=== PATIENT | female | born 1935 | race African-American/Black ===

== ENCOUNTER 2017-02-28 06:00 | Emergency (ER) | payer MEDICARE, OTHER ==
[2017-02-28 07:57] LABS: Basophils % (Auto) 0.9 % (0.0-1.8); Eosinophils % (Auto) 1.5 % (0.0-4.3); Hematocrit 41.1 % (30.3-42.9); Hemoglobin 13.6 gm/dl (10.1-14.3); Mean Corpuscular HGB Conc 33 % (30-34); Mean Corpuscular Hemoglobin 30 pg (28-32); Mean Corpuscular Volume 90 fl (79-97); Platelet Count 295 K/mm3 (140-440); Red Blood Count 4.55 M/mm3 (3.65-5.03); Red Cell Distribution Width 14.1 % (13.2-15.2); White Blood Count 10.3 K/mm3 (4.5-11.0)
[2017-02-28] MEDS ORDERED: MOTRIN PO ONE (07:57)
--- NOTE | 2017-02-28 08:01 | Emergency Department Report ---
ED Chest Pain HPI - General Chief Complaint: Chest Pain Stated Complaint: CHEST PAIN Time Seen by Provider: 02/28/17 07:51 Source: patient, EMS Mode of arrival: Stretcher Limitations: No Limitations - History of Present Illness Initial Comments: 81-year-old female presents to the emergency department complaining of chest pain. Patient reports the onset of sharp left-sided chest pain last night at 11 PM. Patient reports pain is only present with inspiration. Pain does not radiate. She reports mild associated shortness of breath. She denies headache , dizziness, diaphoresis, nausea, or vomiting. At this time, she reports that the sharp pain has improved, but is still present. There are no other complaints. MD Complaint: chest pain -: Sudden, Last night Time: 23:00 Onset: during rest Pain Location: left chest Pain Radiation: none Severity: severe Severity scale (0 -10): 8 Quality: sharp Consistency: constant Improves With: nothing Worsens With: inspiration re: dyspnea. denies: nausea, vomting, diaphoresis Treatments Prior to Arrival: none - Related Data On Oral Contraceptives: No Previous Rx's Medication Instructions Recorded Last Taken Type Ibuprofen [Motrin] 800 mg PO Q8HR PRN #30 tablet 02/28/17 Unknown Rx Allergies Allergy/AdvReac Type Severity Reaction Status Date / Time No Known Allergies Allergy Unverified 02/28/17 07:10 DAYNE score - Dayne Score Age > 65: (1) Yes Aspirin use within the Past 7 Days: (0) No 3 or more CAD Risk Factors: (0) No 2 or more Angina events in past 24 hrs: (0) No Known CAD with more than 50% Stenosis: (0) No Elevated Cardiac Markers: (0) No ST Deviation Greater than 0.5mm: (0) No DAYNE Score: 1 ED Review of Systems ROS: Stated complaint: CHEST PAIN Other details as noted in HPI Comment: All other systems reviewed and negative Respiratory: shortness of breath Cardiovascular: chest pain ED Past Medical Hx - Past Medical History Previous Medical History?: Yes Hx Hypertension: Yes Hx Asthma: Yes Additional medical history: A-fib - Surgical History Past Surgical History?: No - Family History Family history: no significant - Social History Smoking Status: Never Smoker Substance Use Type: None - Medications Home Medications: Home Medications Medication Instructions Recorded Confirmed Last Taken Type Ibuprofen [Motrin] 800 mg PO Q8HR PRN #30 tablet 02/28/17 Unknown Rx ED Physical Exam - General Limitations: No Limitations General appearance: alert, in no apparent distress - Head Head exam: Present: atraumatic, normocephalic - Eye Eye exam: Present: normal appearance, PERRL, EOMI - ENT ENT exam: Present: normal exam, normal orophraynx, mucous membranes moist - Neck Neck exam: Present: normal inspection, full ROM. Absent: tenderness - Respiratory Respiratory exam: Present: normal lung sounds bilaterally, chest wall tenderness (tenderness to palpation of the left anterior chest wall. Palpation reproduces her complaint.). Absent: respiratory distress - Cardiovascular Cardiovascular Exam: Present: regular rate, irregular rhythm, normal heart sounds - GI/Abdominal GI/Abdominal exam: Present: soft, normal bowel sounds. Absent: distended, tenderness - Extremities Exam Extremities exam: Present: normal inspection, full ROM. Absent: tenderness - Back Exam Back exam: Present: normal inspection, full ROM. Absent: tenderness - Neurological Exam Neurological exam: Present: alert, oriented X3. Absent: motor sensory deficit - Skin Skin exam: Present: warm, dry, intact ED Course Vital Signs 02/28/17 02/28/17 02/28/17 06:01 06:05 06:30 Temperature 98.9 F Pulse Rate 116 H 117 H 109 H Respiratory 14 20 17 Rate Blood Pressure 113/63 114/65 Blood Pressure [Left] O2 Sat by Pulse 100 97 98 Oximetry 02/28/17 07:14 Temperature 98.9 F Pulse Rate 117 H Respiratory 16 Rate Blood Pressure Blood Pressure 103/66 [Left] O2 Sat by Pulse 96 Oximetry ED Medical Decision Making - Lab Data Result diagrams: 02/28/17 07:38 02/28/17 07:38 - EKG Data -: EKG Interpreted by Me EKG shows normal: axis, intervals, QRS complexes, ST-T waves Rate: normal - EKG Data When compared to previous EKG there are: previous EKG unavailable Interpretation: other (atrial fibrillation) - Radiology Data Radiology results: image reviewed interpreted by me: Chest x-ray shows no acute cardiopulmonary abnormality. - Medical Decision Making Lab and imaging results reviewed and discussed with the patient. Patient reports her pain is improved with ibuprofen. Patient will be discharged home at this time to follow up with her primary care physician. - Differential Diagnosis chest wall pain, ACS, arrhythmia Critical care attestation.: If time is entered above; I have spent that time in minutes in the direct care of this critically ill patient, excluding procedure time. ED Disposition Clinical Impression: Chest wall pain Disposition: DISCHARGED TO HOME OR SELFCARE Is pt being admited?: No Condition: Stable Instructions: Chest Pain (ED) Prescriptions: Ibuprofen [Motrin] 800 mg PO Q8HR PRN #30 tablet PRN Reason: Pain Referrals: PRIMARY CARE, [Primary Care Provider] - 3-5 Days Time of Disposition: 08:52
[2017-02-28 08:13] LABS: Creatine Kinase MB 4.7 ng/mL (0.0-4.0)
[2017-02-28 08:14] LABS: Anion Gap 18 mmol/L; BUN/Creatinine Ratio 13.75; Blood Urea Nitrogen 11 mg/dL (7-17); Calcium 9.3 mg/dL (8.4-10.2); Carbon Dioxide 22 mmol/L (22-30); Chloride 102.4 mmol/L (98-107); Creatine Kinase 272 units/L (30-135); Glucose 123 mg/dL (65-100); Potassium 4.2 mmol/L (3.6-5.0); Sodium 138 mmol/L (137-145)
--- NOTE | 2017-02-28 08:38 | XRay Report ---
AP CHEST: HISTORY: chest pain No comparison. Heart size and pulmonary vascularity are within normal limits. There is poor visualization of the left costophrenic angle which could represent a small left pleural effusion. Otherwise, the lungs are clear. No evidence for pneumonia or pneumothorax. IMPRESSION: Possible trace left pleural effusion.
[2017-02-28 09:06] VITALS: BP 112/73
== END 2017-02-28 09:07 | disposition home or self-care (01) ==
LOC: ED 06:00
DX: R07.89 Other chest pain (principal); I10 Essential (primary) hypertension; J45.909 Unspecified asthma, uncomplicated; I48.91 Unspecified atrial fibrillation
CPT/HCPCS: 36415; 71010; 80048; 82550; 82553; 84484; 85025; 93005; 93010